=== PATIENT | female | born 2000 | race Caucasian/White ===

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

== ENCOUNTER 2018-07-26 23:54 | Emergency (ER) | payer OTHER, SELFPAY ==
[~2018-07-26] VITALS: Ht 162.6 cm; Wt 59.0 kg
[2018-07-27] MEDS ORDERED: LORazepam Inj 2mg/ml 1ml IM ONE (00:15)
--- NOTE | 2018-07-27 00:15 | NUR ---
ED Nurse Note: RECIEVED PT BIBA FROM HOME WITH C/O ARM PAIN, PT ADMITS TO USING METH THIS EVENING AND CAN NOT FEEL HER HANDS, PT NOTED HOLDING BOTH HANDS TOGETHER AND STATING SHE CAN NOT MOVE THEM, THEN NOTED TEXTING, PT IS ANXIOUS AND BEHAVING MOSTLY INAPPROPRIATELY, NO S/S OF PAIN, NO SOB OR LABORED BREATHING, WILL CONTINUE TO CLOSELY MONITOR AND PREPARE FOR ADMISSION.
--- NOTE | 2018-07-27 00:15 | Emergency Room Report ---
History of Present Illness General Chief Complaint: Substance Abuse Source: Patient, Medical Record Present Illness HPI This is a 17-year-old female with history of drug abuse. She injects methamphetamine and heroin. She presents with chief complaint of unable to fill her hands. She said it felt numb. She called 911. Patient denies any suicidal thoughts homicidal thought. No nausea no vomiting. No fever or chills. No other complaint. Allergies: Coded Allergies: No Known Allergies (Unverified , 09/24/17) Patient History Past Medical History: see triage record, old chart reviewed Past Surgical History: none Pertinent Family History: none Social History: Reports: smoking, drug use Last Menstrual Period: 07/11/18 Now: No Immunizations: other Reviewed Nursing Documentation: PMH: Agreed; PSxH: Agreed Nursing Documentation-PMH Past Medical History: No History, Except For Hx Asthma: Yes Review of Systems Eye: Denies: eye pain, blurred vision ENT: Denies: ear pain, nose congestion, throat swelling Respiratory: Denies: cough, shortness of breath Cardiovascular: Denies: chest pain, palpitations Gastrointestinal: Denies: abdominal pain, diarrhea, nausea, vomiting Musculoskeletal: Reports: muscle pain; Denies: back pain, joint pain Skin: Denies: rash Neurological: Denies: headache, numbness Endocrine: Denies: increased thirst, increased urine Hematologic/Lymphatic: Denies: easy bruising All Other Systems: negative except mentioned in HPI Physical Exam Vital Signs Date Time Temp Pulse Resp B/P (MAP) Pulse Ox O2 Delivery O2 Flow Rate FiO2 07/26/18 23:51 99.0 88 18 138/99 98 Room Air vitals normal Sp02 EP Interpretation: reviewed, normal General Appearance: well appearing, no apparent distress, alert Head: normocephalic, atraumatic Eyes: bilateral eye PERRL, bilateral eye EOMI ENT: hearing grossly normal, normal pharynx Neck: full range of motion, supple, no meningismus Respiratory: chest non-tender, lungs clear, normal breath sounds Cardiovascular #1: regular rate, rhythm, no murmur Gastrointestinal: normal bowel sounds, non tender, no mass, no organomegaly, no bruit, non-distended Musculoskeletal: back normal, gait/station normal, normal range of motion Psychiatric: anxious Skin: warm/dry Medical Decision Making Diagnostic Impression: Primary Impression: Substance abuse Additional Impression: Panic attack ER Course Patient presents with panic attack induced from drugs. No criteria for 5150. We'll discharge home in the morning. Patient does not want to go to intermediate. Last Vital Signs Date Time Temp Pulse Resp B/P (MAP) Pulse Ox O2 Delivery O2 Flow Rate FiO2 07/26/18 23:51 99.0 88 18 138/99 98 Room Air Status: improved Disposition: HOME, SELF-CARE Condition: Stable Patient Instructions: Substance Use Disorder Additional Instructions: Stop using drugs. Go to rehabilitation. Go to shelters. Return if symptom worsen. Darien White MD Jul 27, 2018 00:15
--- NOTE | 2018-07-27 04:00 | NUR ---
ED Nurse Note: patient sleeping comfortably in bed. nad. offered sandwich and water; patient refused.
[2018-07-27 04:47] VITALS: BP 114/78
--- NOTE | 2018-07-27 05:00 | NUR ---
ED Nurse Note: patient sleeping comfortably in bed. nad.
[2018-07-27 06:09] VITALS: BP 113/73
[2018-07-27 06:10] VITALS: BP 113/73
--- NOTE | 2018-07-27 06:11 | NUR ---
ER DISCHARGE NOTE: Patient is cleared to be discharged per ERMD, pt is aox4, on room air, with stable vital signs. patient states she will take the bus to her father's house. pt was given dc instructions, pt was able to verbalize understanding, pt id band REMOVED. pt is able to ambulate with steady gait. pt took all belongings.
== END 2018-07-27 06:09 | disposition home or self-care (01) ==
LOC: EDBD 23:54 → EMR 23:59
DX: F15.10 Other stimulant abuse, uncomplicated (principal); F11.10 Opioid abuse, uncomplicated; F17.200 Nicotine dependence, unspecified, uncomplicated; F41.0 Panic disorder [episodic paroxysmal anxiety]
CPT/HCPCS: 96372; 99283